=== PATIENT | male | born 1970 | race Caucasian/White ===

== ENCOUNTER 2020-09-15 11:50 | Emergency (ER) | payer OTHER ==
[~2020-09-15] VITALS: Ht 175.3 cm; Wt 85.0 kg
[2020-09-15] MEDS ORDERED: TRAZ50TA66 PO (12:14)
[2020-09-15 12:55] LABS: ANION GAP 6 mmol/L (5-15); CALCIUM 8.9 mg/dL (8.5-10.1); CHLORIDE 110 mmol/L (98-107); CREATININE 1.36 mg/dL (0.7-1.3)
[2020-09-15 14:06] VITALS: BP 135/91
== END 2020-09-15 14:08 | disposition home or self-care (01) ==
LOC: ED 12:12
DX: I82.622 Acute embolism and thrombosis of deep veins of left upper extremity (principal); N28.9 Disorder of kidney and ureter, unspecified
CPT/HCPCS: 36415; 80048; 99283

== ENCOUNTER → 2020-09-15 | Outpatient (CLI) | payer OTHER ==
[~2020-09-15] MED LIST: TRAZ50TA66 PO
== END | disposition home or self-care (01) ==
LOC: RAD 10:27
PROVIDERS: ATTEND Physician Assistant Medical
DX: I82.622 Acute embolism and thrombosis of deep veins of left upper extremity (principal)

== ENCOUNTER 2020-09-17 07:49 | Emergency (ER) | payer OTHER ==
[~2020-09-17] VITALS: Ht 175.3 cm; Wt 87.6 kg
[2020-09-17] MEDS ORDERED: SODIUM CHLORIDE FLUSH 10ML SYR IVF ONE (08:30)
--- NOTE | 2020-09-17 08:41 | NUR ---
PT C/O CP YESTERDAY AT 1600. PT CAME TO ED TO GET CHECKED OUT JUST IN CASE. PT DENIES CP, N/V, CHO, OR SOB AT THIS TIME. PT STATES "I FEEL OK GISELLE NOW".
[2020-09-17 08:50] LABS: BASOPHILS % (AUTO) 1 % (0-1); EOSINOPHILS % (AUTO) 1 % (1-7); LYMPHOCYTES % (AUTO) 28 % (22-44); MEAN CORPUSCULAR HEMOGLOBIN 29.6 pg (27.5-34.5); MEAN CORPUSCULAR HGB CONC 33.9 g/dL (33.2-36.2); MEAN PLATELET VOLUME 9.8 fL (7.4-10.4); MONOCYTES % (AUTO) 7 % (2-9); NEUTROPHILS % (AUTO) 62 % (42-75); PLATELET COUNT 170 x10^3/uL (130-400); RED BLOOD COUNT 5.69 x10^6/uL (4.38-5.82); RED CELL DISTRIBUTION WIDTH 13.7 % (9.4-14.8)
[2020-09-17 08:53] LABS: MD NO
[2020-09-17 09:02] LABS: ANION GAP 6 mmol/L (5-15); CALCIUM 9.4 mg/dL (8.5-10.1); CHLORIDE 107 mmol/L (98-107); CREATININE 1.36 mg/dL (0.7-1.3)
[2020-09-17 09:05] LABS: TROPONIN I < 0.015 ng/mL (0.000-0.045)
--- NOTE | 2020-09-17 09:16 | NUR ---
CT WAITING FOR IV ACCESS FOR CTA
[2020-09-17] MEDS ORDERED: OMNIPAQUE 350 MG/ML, 75ML BOTTLE ONE (11:40)
--- NOTE | 2020-09-17 13:03 | NUR ---
PT REC/VD DISCHARGE INSTRUCTIONS AND EDUCATION. PT HAD NO FURTHER QUESTIONS.
[2020-09-17 13:08] VITALS: BP 130/95
== END 2020-09-17 13:19 | disposition home or self-care (01) ==
LOC: ED 08:45
DX: R07.89 Other chest pain (principal); R05 Cough; R53.83 Other fatigue; R94.31 Abnormal electrocardiogram [ECG] [EKG]; Z86.718 Personal history of other venous thrombosis and embolism; Z79.899 Other long term (current) drug therapy
CPT/HCPCS: 36415; 71045; 71275; 80048; 82040; 83880; 84484; 85025; 93005; 99285; Q9967